=== PATIENT | male | born 1970 | race Caucasian/White ===

== ENCOUNTER 2018-05-06 18:00 | Inpatient (IN) | payer SELFPAY ==
[~2018-05-06] VITALS: Ht 177.8 cm; Wt 72.7 kg
--- NOTE | ~2018-05-06 | WRIGHTHP ---
[place], [place] PATIENT HISTORY AND PHYSICAL EXAM NAME: YULIA AYOUB [facility] #: [id number] UNIT #: [id number] ROOM: 405 DOCTOR: RENÉ FRANCIS MD BIRTHDATE: [birth year] DOS: 05/06/2018 HISTORY OF PRESENT ILLNESS: The patient is a 47-year-old gentleman with past medical history of generalized anxiety disorder, presented to the Emergency Department with suffering an injury to his left ankle 10 days ago, but the patient says he had the swelling in his left leg, even before that. Since then, he developed redness and swelling, which was increasing, so he was evaluated in the Emergency Department and found to have an abscess in the left ankle and taken to the operation room this morning and the abscess was drained. No complaints of any chest pain, shortness of breath.. No other GI or urinary symptoms. REVIEW OF SYSTEMS: RESPIRATORY: No increasing shortness of breath or wheezing. GASTROINTESTINAL: No nausea, vomiting, diarrhea or constipation. CARDIOVASCULAR: No chest pains or palpitations. SOCIAL HISTORY: Smokes half pack of cigarettes a day. Denies any drug or alcohol abuse. FAMILY HISTORY: Noncontributory. HOME MEDICATIONS: The patient takes lorazepam as needed. PHYSICAL EXAMINATION: GENERAL: Alert and oriented x 3, in no visible distress. VITAL SIGNS: Blood pressure 105/54, breathing normally, afebrile, heart rate of 88 beats per minute, going up to 101 beats per minute. HEENT AND NECK: Extraocular movements are intact. Sclerae are anicteric. Oral mucosa is moist and clean. No obvious facial weakness. Neck is supple without any lymphadenopathy. No thyromegaly. No JVD. No carotid arterial bruits. LUNGS: Clear to auscultation. No wheezing. No rhonchi. CARDIOVASCULAR SYSTEM: Heart rate is regular in rate and rhythm. S1 and S2 normally audible. No significant murmur or any other abnormal cardiac sounds. ABDOMEN: Soft, nontender. No obvious organomegaly. Bowel sounds are present. No obvious herniation. EXTREMITIES: Swelling of the left leg and drained abscess on the left ankle. CENTRAL NERVOUS SYSTEM: Alert and oriented x 3. Cranial nerves II-XII are intact. Speech is normal. The patient is able to move all extremities. Normal muscle strength. Deep tendon reflexes are equal on both sides. Plantars were downgoing. LABORATORY DATA: White cell count of 616,000, improved to 13,000 today. Normal serum electrolytes, bilirubin, liver enzymes. Alkaline phosphatase slightly elevated at 123. IMPRESSION: 1. The patient with swelling of the left lower extremity from uncertain etiology. I am ordering a stat venous Doppler of the left leg to rule out deep [place], [place] PATIENT HISTORY AND PHYSICAL EXAM NAME: YULIA AYOUB UNIT #: [id number] ROOM: 405 DOCTOR: RENÉ FRANCIS MD BIRTHDATE: [birth year] venous thrombosis. 2. Abscess at the left ankle and spreading cellulitis in the left leg related to injury, treated with drainage of the abscess by Dr. Rodriguez this morning and the patient to be continued on vancomycin and another antibiotic to be added by Infectious Disease specialist who has been consulted. 3. Nicotine smoke dependence. The patient has been encouraged to stop smoking cigarettes. RENÉ FRANCIS MD CM:HISPHYS:PATIENT HISTORY AND PHYSICAL EXAMINATION [id number] RENÉ FRANCIS MD 05/07/18 1022 interface
--- NOTE | ~2018-05-06 | CON ---
[place], [place] REPORT OF CONSULTATION NAME: YULIA AYOUB UNIT #: [id number] ROOM: 405 DOCTOR: CHETNA LIU MD BIRTHDATE: [birth year] DOS: 05/07/2018 REASON FOR CONSULTATION: Left foot cellulitis with abscess. CHIEF COMPLAINT: Left foot swelling. HISTORY OF PRESENT ILLNESS: This is a 47-year-old male with no significant past medical history, presented to the ER because of left ankle pain and swelling. He mentions that he was noticing some swelling and redness on his left foot as well as lower leg for a few days and almost 4 days ago, he hit his foot against shopping cart and the metal part hit him through his tennis shoes and caused him to have a lot of pain associated with chills. No nausea, vomiting, diarrhea. He is not a diabetic. No IV drug abuse. 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 Next on imaging of his ankle, there was a soft tissue swelling noted, but no gas in the tissues and the patient was seen by Dr. Rodriguez and he underwent I and D today of his left lower leg abscess. PAST MEDICAL HISTORY: None. PAST SURGICAL HISTORY: None. SOCIAL HISTORY: Smokes half a pack of cigarettes per day. No drug abuse. No illicit drug use. REVIEW OF SYSTEMS: A 12-point review of systems has been done. Pertinent negative and positive have been included in HPI. Rest is noncontributory. MEDICATIONS: Include lorazepam as needed. PHYSICAL EXAMINATION: GENERAL: The patient is alert, oriented x 3, not in acute distress. VITAL SIGNS: Blood pressure of 97.6, pulse rate 78, respiratory rate 17, blood pressure 112/55, oxygen saturation 96% on room air. HEENT: Atraumatic, normocephalic. PERRLA, EOMI. RESPIRATORY: Air entry bilaterally equal. No wheeze or crackles. CARDIOVASCULAR: S1, S2 normal. No murmur, rubs or gallops, rub. ABDOMEN: Soft, nontender, nondistended. Bowel sounds present in all 4 quadrants. EXTREMITIES: Left lower leg currently wrapped. Previous note mentions 3 x 3 cm abscess with tenderness and redness. NEUROLOGIC: Grossly intact. LABORATORY DATA: Reveal WBC count of 16.2 on admission, predominantly neutrophilic. Sodium 139, BUN 13, creatinine 0.89, GFR more than 60. Lactic acid 0.6. AST, ALT within normal limits. Blood cultures from yesterday 05/06/2018 negative so far. Wound cultures are in process. IMAGING: Noted and mentioned in HPI. ASSESSMENT AND PLAN: Left lower leg abscess, status post trauma, status post I [place], [place] REPORT OF CONSULTATION NAME: YULIA AYOUB UNIT #: [id number] ROOM: 405 DOCTOR: CHETNA LIU MD BIRTHDATE: [birth year] and D done today on 05/07/2018, blood cultures negative so far. Wound cultures in process. PLAN: At this time, okay to continue vancomycin. I do want to add gram-negative coverage. The patient has severe allergy to PENICILLIN, although it was when he was 11 years old, but caused him to have difficulty breathing. He has been kept on ciprofloxacin 500 twice a day. I will wait for the cultures to finalize. Expect to change on p.o. antibiotics in the next 24-48 hours. Thank you for your consult. Please call for any questions. Elvia Liu MD CM:CONSTR:REPORT OF CONSULTATION 1722 05/08/18 0309 interface
--- NOTE | ~2018-05-06 | DS ---
[place], [place] DISCHARGE SUMMARY NAME: YULIA AYOUB UNIT #: [id number] ROOM: 405 DOCTOR: RENÉ FRANCIS MD BIRTHDATE: [birth year] DOS: 05/08/2018 DISCHARGE DIAGNOSES: 1. Left foot abscess and cellulitis involving left leg with gram-positive cocci, final culture results are pending. 2. Generalized anxiety disorder. 3. Nicotine smoke dependence. HOSPITAL COURSE: The patient presented to the Emergency Department at [facility] with injury to his left ankle 10 days prior to admission with swelling in his left leg and redness. The patient was found to have abscess involving left leg and spreading cellulitis along with redness and swelling. The patient was taken to surgery by Dr. Rodriguez and the abscess was drained and he was treated with IV vancomycin and oral ciprofloxacin because he is allergic to PENICILLIN. The patient is insisting on going home today because of and case was discussed with the ID specialist, Dr. Foster. The patient is to go home on doxycycline 100 mg twice a day for 10 days with final cultures still pending. Leukocytosis from abscess and cellulitis with white cell count of 16,000, has resolved and white cell counts are normal now. Nicotine smoke dependence. The patient encouraged to stop smoking cigarettes and he plans to stay off smoking. Generalized anxiety disorder, treated with Ativan as needed. The patient ruled out for DVT of the left lower extremity with venous Dopplers. DISCHARGE MANAGEMENT: Doxycycline 100 mg b.i.d. for 10 days, lorazepam 0.5 mg p.r.n. for anxiety. The patient to follow up with Dr. Foster within a week as an outpatient and followup with his PCP, Dr. Portillo Vivar within a week. [place], [place] DISCHARGE SUMMARY NAME: YULIA AYOUB UNIT #: [id number] ROOM: 405 DOCTOR: RENÉ FRANCIS MD BIRTHDATE: [birth year] RENÉ FRANCIS MD CM:DISCHARG [id number] RENÉ FRANCIS MD 05/08/18 1617 interface
--- NOTE | ~2018-05-06 | PROC NOTE ---
[place], [place] PROCEDURE NOTE [facility] [id number] UNIT #: [id number] ROOM: 405 DOCTOR: GLEN FUENTES MD BIRTHDATE: [birth year] DOS: 05/07/2018 PREOPERATIVE DIAGNOSIS: Left leg abscess. POSTOPERATIVE DIAGNOSIS: Left leg abscess. PROCEDURE: I and D of left leg abscess. SURGEON: Glen Fuentes M.D. SPRING COVERER: ANDRA. ANESTHESIA: MAC with local anesthesia (1% plain lidocaine). INDICATIONS: This is a 47-year-old male admitted for cellulitis and left leg abscess, who is here for the above-mentioned procedure. The procedure and its complications were explained to the patient in detail preoperatively. Complications that were discussed included, but were not limited to bleeding, infection, hematoma/seroma/abscess formation, and damage to lying vital structures. He agreed to proceed. DESCRIPTION OF PROCEDURE: After identifying the patient, the patient was brought to the operating suite and laid in the supine position. After IV sedation was administered, a timeout procedure was called and the parts were painted and draped in the usual sterile fashion. Local anesthesia (1% plain lidocaine) was injected in the proposed site of the incision. Incision was made and deepened in layers until the abscess cavity was reached. A specimen of pus was sent for microbiological examination. Thereafter, the abscess cavity was irrigated with saline and packed with half inch iodoform dressing and a dressing was placed on top of this. The patient was then brought back to the recovery room in stable fashion. There were no complications. Dr. Glen Fuentes, the attending surgeon, was present throughout the operating case. Glen Fuentes MD CM:PROCNOTE:PROCEDURE NOTE [id number] 18 GLEN FUENTES MD
[~2018-05-06 18:00] MED LIST: ATIVAN0.5 MG PO; IBU-8800 MG PO; NAPROSYN500 MG PO; SOMA350 MG PO; ZITHROMAX250 MG PO
[2018-05-06 18:05] VITALS: BP 127/57
[2018-05-06 18:46] LABS: BASO # 0.1 10*3/uL (0.0-0.1); BASO % 0.4 % (0.0-1.0); EOS # 0.3 10*3/uL (0.0-0.4); EOS % 1.5 % (1.0-4.0); HEMATOCRIT 37.6 % (42.0-52.0); HEMOGLOBIN 12.3 g/dl (14.0-18.0); LYMPH # 2.3 10*3/uL (1.3-4.4); LYMPH % 14.1 % (27.0-41.0); MEAN CORPUSCULAR HGB 28.5 pg (27.0-31.0); MEAN CORPUSCULAR HGB CONC 32.7 g/dl (33.0-37.0); MEAN PLATELET VOLUME 9.6 fl (9.6-12.3); MONO # 1.3 10*3/uL (0.1-1.0); MONO % 7.8 % (3.0-9.0); NEUT # 12.3 10*3/uL (2.3-7.9); NEUT % 75.9 % (47.0-73.0); PLATELET COUNT AUTOMATED 254 10*3/uL (130-400); RED BLOOD COUNT 4.32 10*6/uL (4.50-5.90); RED CELL DISTRI WIDTH 12.9 % (0-14.5); WHITE BLOOD COUNT 16.2 10*3/uL (4.8-10.8)
[2018-05-06 19:04] LABS: ALBUMIN 3.2 gm/dl (3.1-4.5); ALKALINE PHOSPHATASE 123 U/L (45-117); BUN 13 mg/dl (7-24); CHLORIDE 105 mmol/L (98-107); CREATININE 0.89 mg/dL (0.70-1.30); POTASSIUM 3.6 mmol/L (3.5-5.1); SGOT/AST 16 IU/L (3-35); SGPT/ALT 19 U/L (12-78); SODIUM 139 mmol/L (136-145); TOTAL PROTEIN 7.6 gm/dL (6.4-8.2)
[2018-05-06 20:30] VITALS: BP 133/74
[2018-05-06 20:31] VITALS: BP 118/70
[2018-05-06 21:00] VITALS: BP 133/74
[2018-05-07] VITALS (9 sets, daily range): BP systolic 105–121; BP diastolic 54–70
[2018-05-07 07:47] LABS: BASO # 0.1 10*3/uL (0.0-0.1); BASO % 0.4 % (0.0-1.0); EOS # 0.2 10*3/uL (0.0-0.4); EOS % 1.2 % (1.0-4.0); HEMATOCRIT 34.5 % (42.0-52.0); HEMOGLOBIN 11.1 g/dl (14.0-18.0); LYMPH # 1.3 10*3/uL (1.3-4.4); LYMPH % 9.8 % (27.0-41.0); MEAN CELL VOLUME 88.2 fl (80.0-94.0); MEAN CORPUSCULAR HGB 28.4 pg (27.0-31.0); MEAN CORPUSCULAR HGB CONC 32.2 g/dl (33.0-37.0); MEAN PLATELET VOLUME 10.3 fl (9.6-12.3); MONO # 1.1 10*3/uL (0.1-1.0); MONO % 7.8 % (3.0-9.0); NEUT % 80.4 % (47.0-73.0); PLATELET COUNT AUTOMATED 216 10*3/uL (130-400); RED BLOOD COUNT 3.91 10*6/uL (4.50-5.90); WHITE BLOOD COUNT 13.7 10*3/uL (4.8-10.8)
[2018-05-07 08:14] LABS: CHLORIDE 107 mmol/L (98-107); POTASSIUM 4.2 mmol/L (3.5-5.1); SODIUM 137 mmol/L (136-145)
[2018-05-07 08:21] LABS: BUN 9 mg/dl (7-24); CREATININE 0.72 mg/dL (0.70-1.30)
[2018-05-08] VITALS: BP 103/49
[2018-05-08 06:22] LABS: BASO # 0.1 10*3/uL (0.0-0.1); BASO % 0.6 % (0.0-1.0); EOS # 0.2 10*3/uL (0.0-0.4); EOS % 2.4 % (1.0-4.0); HEMOGLOBIN 10.8 g/dl (14.0-18.0); LYMPH # 1.7 10*3/uL (1.3-4.4); LYMPH % 18.6 % (27.0-41.0); MEAN CELL VOLUME 88.5 fl (80.0-94.0); MEAN CORPUSCULAR HGB CONC 32.7 g/dl (33.0-37.0); MEAN PLATELET VOLUME 10.3 fl (9.6-12.3); MONO # 0.8 10*3/uL (0.1-1.0); MONO % 8.3 % (3.0-9.0); NEUT # 6.5 10*3/uL (2.3-7.9); NEUT % 69.6 % (47.0-73.0); PLATELET COUNT AUTOMATED 220 10*3/uL (130-400); RED BLOOD COUNT 3.73 10*6/uL (4.50-5.90); RED CELL DISTRI WIDTH 13.1 % (0-14.5); WHITE BLOOD COUNT 9.4 10*3/uL (4.8-10.8)
[2018-05-08 06:54] LABS: BUN 11 mg/dl (7-24); CHLORIDE 107 mmol/L (98-107); CREATININE 0.77 mg/dL (0.70-1.30); POTASSIUM 3.9 mmol/L (3.5-5.1); SODIUM 140 mmol/L (136-145)
[2018-05-08 12:00] VITALS: BP 108/79
[2018-05-08] MEDS ORDERED: DOXYCYCLINE100 M3 PO (15:49)
[2018-05-08 16:00] VITALS: BP 117/73
== END 2018-05-08 16:56 | disposition home or self-care (01) | DRG 872 ==
LOC: ED 18:00 → EDHOLD 19:45 → 4E 19:45
PROVIDERS: Internal Medicine; Nurse Practitioner Family
PROC: 0Y9J0ZZ Drainage of Left Lower Leg, Open Approach (ICD-10-PCS; principal; 2018-05-07)
DX: A41.9 Sepsis, unspecified organism (principal); L02.416 Cutaneous abscess of left lower limb; L03.116 Cellulitis of left lower limb; F41.1 Generalized anxiety disorder; F17.210 Nicotine dependence, cigarettes, uncomplicated; B96.89 Other specified bacterial agents as the cause of diseases classified elsewhere; Z88.0 Allergy status to penicillin